=== PATIENT | female | born 1995 | race Caucasian/White ===

== ENCOUNTER 2020-11-07 11:33 | Outpatient (CLI) | payer OTHER, SELFPAY | END 2020-11-07 11:34 | disposition home or self-care (01) | LOC: ANHCOVIDVC 11:34 | DX: Z23 Encounter for immunization (principal) | CPT/HCPCS: 0001A; 91300 ==

== ENCOUNTER 2020-11-28 11:35 | Outpatient (CLI) | payer OTHER, SELFPAY | END 2020-11-28 11:36 | disposition home or self-care (01) | LOC: ANHCOVIDVC 11:35 | DX: Z23 Encounter for immunization (principal) | CPT/HCPCS: 0002A; 91300 ==